=== PATIENT | male | born 1990 | race Two or more races ===

== ENCOUNTER 2019-03-07 21:10 | Emergency (ER) | payer SELFPAY ==
[~2019-03-07] VITALS: Ht 170.2 cm; Wt 68.0 kg
[2019-03-07 21:16] VITALS: BP 131/80
--- NOTE | 2019-03-07 22:21 | PHYS DOC ---
Past Medical History Past Medical History: No Pertinent History Past Surgical History: No Surgical History Alcohol Use: Occasionally Drug Use: None Adult General Chief Complaint Chief Complaint: LACERATION/AVULSION HPI HPI Patient is a 28 year old male who presents with tripping over concrete steps prior to arrival after slipping on ice. He fell and hit his chin on the steps. He rates his pain as 7 out of 10 in severity and sharp. Has a laceration to the chin. Patient also states his teeth are not fitting together correctly he has jaw pain. States his last Tetanus shot was last July. Review of Systems Review of Systems Constitutional: Denies fever or chills [] Eyes: Denies change in visual acuity, redness, or eye pain [] HENT: Reports teeth feel off. Respiratory: Denies cough or shortness of breath [] Cardiovascular: No additional information not addressed in HPI [] GI: Denies abdominal pain, nausea, vomiting, bloody stools or diarrhea [] : Denies dysuria or hematuria [] Musculoskeletal: Reports jaw pain. Integument: Reports laceration to chin. Neurologic: Denies headache, focal weakness or sensory changes [] Endocrine: Denies polyuria or polydipsia [] Complete systems were reviewed and found to be within normal limits, except as documented in this note. Current Medications Current Medications Current Medications Medications (Trade) Dose Ordered Sig/[facility] Start Time Stop Time Status Last Admin Dose Admin Lidocaine HCl 20 ml 1X ONCE 03/07/19 22:30 03/07/19 22:31 DC Neomycin/ Polymyxin/ Bacitracin (Triple Antibiotic Ointment) 1 pkt 1X ONCE 03/08/19 00:00 03/08/19 00:01 DC Allergies Allergies Allergies Coded Allergies Type Severity Reaction Last Updated Verified No Known Drug Allergies 03/07/19 No Physical Exam Physical Exam Constitutional: Well developed, well nourished, no acute distress, non-toxic appearance. [] HENT: Normocephalic, laceration to chin about 2 cm, bilateral external ears normal, oropharynx moist, no oral exudates, nose normal. Tenderness to mandible. Eyes: PERRLA, EOMI, conjunctiva normal, no discharge. [] Neck: Normal range of motion, no tenderness, supple, no stridor. [] Cardiovascular:Heart rate regular rhythm, no murmur [] Lungs & Thorax: Bilateral breath sounds clear to auscultation [] Abdomen: Bowel sounds normal, soft, no tenderness, no masses, no pulsatile masses. [] Skin: Laceration to Chin. Neurologic: Alert and oriented X 3, normal motor function, normal sensory function, no focal deficits noted. [] Psychologic: Affect normal, judgement normal, mood normal. [] Current Patient Data Vital Signs Vital Signs Date Time Temp Pulse Resp B/P (MAP) Pulse Ox O2 Delivery O2 Flow Rate FiO2 03/07/19 21:16 98.5 116 16 131/80 (97) 95 Room Air 98.5 EKG EKG [] Radiology/Procedures Radiology/Procedures Indication: Chin laceration Procedure: The patient was placed in the appropriate position and anesthesia around the 2% lidocaine. The area was then cleansed with 210 mL of NS. The la ceration was closed with 8 5-0 Nylon sutures. The wound area was then dressed with neosporin and dressing. Total repaired wound length: 2.5 cm. The patient tolerated the procedure well. Complications: None [][facility] [address] [place] [address] IMAGING REPORT Signed PATIENT: MISTI VILLEGAS ACCOUNT: [id number] : 1990 LOCATION: ER AGE: 28 SEX: M EXAM STATUS: REG ER ORD. PHYSICIAN: LACIE MCBRIDE APRN REASON: fall, headache, laceration to chin, jaw pain PROCEDURE: CT HEAD AND CERVICAL SPINE WO CT Head W/O Contrast: History: Fall headache laceration to chin and jaw Comparison: none Axial images were obtained without contrast. The ware and white matter appears normal and symmetrical for the patients age. There is no mass effect, extraaxial fluid collections or hydrocephalus. There is no gross bleed. There is no focal loss of ware-white matter distinction to suggest acute ischemia, i.e. stroke. Impression: No acute findings. End impression CT C-Spine without contrast: Clinical History: Pain status post fall laceration to chin Technique: Axial helical images of the cervical spine were obtained without contrast, axial coronal and sagittal reconstruction was performed. Findings: There is no loss of vertebral body stature. There is no prevertebral soft tissue swelling. The vertebral bodies are well aligned. The C1-C2 relationship is normal. The visualized osseous structures appear normal. Impression: No acute findings. Clinical correlation suggested. End impression CT maxillofacial without contrast History: Painful laceration to chin Axial helical images of the face including the paranasal sinuses orbits and mandible were obtained without contrast. Axial and coronal reconstruction was performed. The nasal septum is mostly midline. The ostiomeatal complexes are narrow but patent. The paranasal sinuses are clear. The visualized osseous structures appear intact. The orbits appear normal. There is soft tissue laceration of the chin. Impression: No acute bony abnormality. PQRS Compliance Statement: One or more of the following individualized dose reduction techniques were utilized for this examination: 1. Automated exposure control 2. Adjustment of the mA and/or kV according to patient size 3. Use of iterative reconstruction technique Electronically signed by: Carlos Alexis III, MD (03/07/2019 11:04 PM) [facility] DICTATED and SIGNED BY: CARLOS ALEXIS III, MD DATE: 03/07/19 9418 Course & Med Decision Making Course & Med Decision Making Pertinent Labs and Imaging studies reviewed. (See chart for details) Will get CT of maxillofacial, head, and c-spine due to trauma. Will repair laceration as long as CT is negative. Laceration was repaired will d/c home. Discussed return precautions with patient. Jie Disclaimer Jie Disclaimer This electronic medical record was generated, in whole or in part, using a voice recognition dictation system. Departure Departure Impression: Primary Impression: Laceration Additional Impression: Fall Disposition: 01 HOME, SELF-CARE Condition: STABLE Referrals: NO PCP (PCP) Patient Instructions: Facial Laceration Additional Instructions: Thank you for visiting [facility]. We appreciate you trusting us with your care. If any additional problems come up don't hesitate to return to visit us. Please follow up with your primary care provider so they can plan additional care if needed and know about the problem that you had. If symptoms worsen come back to the Emergency Department. Any concerning symptoms that start such as chest pain, shortness of air, weakness or numbness on one side of the body, running high fevers or any other concerning symptoms return to the ER. Please keep your wound dry, especially for the first 24 hours. After the first 24 hours you can wet the wound for a short time. Do not soak the wound or swim until the sutures have been removed. Please have the sutures removed in 5-7 days by your primary care doctor or return to ER for removal. Please keep the wound clean and change your bandage at least twice per day. You can use Neosporin on the wound to help reduce the chance of infection. If you notice signs of infection such as drainage from the wound (Pus), redness, increased pain or swelling return to ER for treatment. Problem Qualifiers Additional Impression: Fall Encounter type: initial encounter Qualified Codes: W19.XXXA - Unspecified fall, initial encounter LACIE MCBRIDE APRN Mar 07, 2019 22:21
[2019-03-07] MEDS ORDERED: LIDOCAINE 2% 20 ML VIAL. IJ ONE (22:30)
--- NOTE | 2019-03-07 23:07 | RAD ---
CT Head W/O Contrast: History: Fall headache laceration to chin and jaw Comparison: none Axial images were obtained without contrast. The ware and white matter appears normal and symmetrical for the patients age. There is no mass effect, extraaxial fluid collections or hydrocephalus. There is no gross bleed. There is no focal loss of ware-white matter distinction to suggest acute ischemia, i.e. stroke. Impression: No acute findings. End impression CT C-Spine without contrast: Clinical History: Pain status post fall laceration to chin Technique: Axial helical images of the cervical spine were obtained without contrast, axial coronal and sagittal reconstruction was performed. Findings: There is no loss of vertebral body stature. There is no prevertebral soft tissue swelling. The vertebral bodies are well aligned. The C1-C2 relationship is normal. The visualized osseous structures appear normal. Impression: No acute findings. Clinical correlation suggested. End impression CT maxillofacial without contrast History: Painful laceration to chin Axial helical images of the face including the paranasal sinuses orbits and mandible were obtained without contrast. Axial and coronal reconstruction was performed. The nasal septum is mostly midline. The ostiomeatal complexes are narrow but patent. The paranasal sinuses are clear. The visualized osseous structures appear intact. The orbits appear normal. There is soft tissue laceration of the chin. Impression: No acute bony abnormality. PQRS Compliance Statement: One or more of the following individualized dose reduction techniques were utilized for this examination: 1. Automated exposure control 2. Adjustment of the mA and/or kV according to patient size 3. Use of iterative reconstruction technique Electronically signed by: Daniel Reid III, MD (03/07/2019 11:04 PM) [facility]
[2019-03-08] MEDS ORDERED: NEOMY/BACITR/POLYMYXIN OINT PACKET. TP ONE
== END 2019-03-08 00:30 | disposition home or self-care (01) ==
LOC: ER 21:10
DX: S01.81XA Laceration without foreign body of other part of head, initial encounter (principal); W18.30XA Fall on same level, unspecified, initial encounter; Y93.89 Activity, other specified; Y92.89 Other specified places as the place of occurrence of the external cause; Y99.8 Other external cause status
CPT/HCPCS: 12011; 70450; 70486; 72125; 99284

== ENCOUNTER 2019-03-17 19:04 | Emergency (ER) | payer SELFPAY ==
[~2019-03-17] VITALS: Ht 172.7 cm; Wt 72.6 kg
--- NOTE | 2019-03-17 21:24 | PHYS DOC ---
Past Medical History Past Medical History: No Pertinent History (SOM EATON APRN) Past Surgical History: No Surgical History (SOM EATON APRN) Alcohol Use: Occasionally Drug Use: None (SOM EATON APRN) Attending Signature I have participated in the care of this patient and I have reviewed and agree with all pertinent clinical information above including history, exam, and recommendations. (MAYELA MARRERO MD) Adult General Chief Complaint Chief Complaint: SUTURE/STAPLE REMOVAL HPI HPI Patient is a 28 year old male who presents with his children and see the laceration required 8 sutures on March 07, 2019. (SOM EATON APRN) Review of Systems Review of Systems Integument: Sutures placed in chin. Denies rash or skin lesions [] All other systems were reviewed and found to be within normal limits, except as documented in this note. (SOM EATON APRN) Allergies Allergies Allergies Coded Allergies Type Severity Reaction Last Updated Verified No Known Drug Allergies 03/07/19 No (MAYELA MARRERO MD) Physical Exam Physical Exam Constitutional: Well developed, well nourished, no acute distress, non-toxic appearance. [] HENT: Normocephalic, atraumatic, bilateral external ears normal, oropharynx moist, no oral exudates, nose normal. [] Eyes: PERRLA, EOMI, conjunctiva normal, no discharge. [] Neck: Normal range of motion, no tenderness, supple, no stridor. [] Cardiovascular:Heart rate regular rhythm, no murmur [] Lungs & Thorax: Bilateral breath sounds clear to auscultation [] Abdomen: Bowel sounds normal, soft, no tenderness, no masses, no pulsatile masses. [] Skin: 8 sutures placed in chin. Warm, dry, no erythema, no rash. [] Back: No tenderness, no CVA tenderness. [] Extremities: No tenderness, no cyanosis, no clubbing, ROM intact, no edema. [] Neurologic: Alert and oriented X 3, normal motor function, normal sensory function, no focal deficits noted. [] Psychologic: Affect normal, judgement normal, mood normal. [] (SOM EATON APRN) Current Patient Data Vital Signs Vital Signs Date Time Temp Pulse Resp B/P (MAP) Pulse Ox O2 Delivery O2 Flow Rate FiO2 1/2/20 20:00 98.3 76 14 131/71 (91) 98 Room Air 98.3 (MAYELA MARRERO MD) EKG EKG [] (SOM EATON APRN) Radiology/Procedures Radiology/Procedures [] (SOM EATON APRN) Course & Med Decision Making Course & Med Decision Making Patient is here today to have sutures removed. Sutures are removed from the chin. Edges are approximated and well-healed. There is no signs of infection such as redness, drainage or tenderness. Vital signs within normal limits. Patient is stable and in no distress. [] (SOM EATON APRN) Dragon Disclaimer Dragon Disclaimer This electronic medical record was generated, in whole or in part, using a voice recognition dictation system. (SOM EATON APRN) Departure Departure Impression: Primary Impression: Visit for suture removal Disposition: 01 HOME, SELF-CARE Condition: STABLE Referrals: NO PCP (PCP) Patient Instructions: Suture Removal-Brief Additional Instructions: FOLLOW UP WITH PRIMARY CARE PROVIDER IF NEEDED. SOM EATON APRN Mar 17, 2019 21:24 MAYELA MARRERO MD Mar 18, 2019 07:36
== END 2019-03-17 21:28 | disposition home or self-care (01) ==
LOC: ER 19:04
DX: S01.81XD Laceration without foreign body of other part of head, subsequent encounter (principal); X58.XXXD Exposure to other specified factors, subsequent encounter; Y93.89 Activity, other specified; Y92.89 Other specified places as the place of occurrence of the external cause; Y99.8 Other external cause status
CPT/HCPCS: 99281